=== PATIENT | female | born 1990 | race Caucasian/White ===

== ENCOUNTER → 2020-06-24 | Outpatient (CLI) | payer BC, OTHER ==
[~2020-06-24] MED LIST: CARAFATE 1 GM TA1 GM PO; CIPRO500 MG PO; COLACE 100MG C100 MG PO; ETHINYL ESTRADIOL PO; LEVONORGESTREL PO; MEDROL DOSEPAK 24 MG PO; NORCO 7.5-3251 EACH PO; PROTONIX40 MG PO; SPIRONOLACTONE50 MG PO; SYNTHROID150 MCG PO; VYVANSE60 MG PO
== END ==
LOC: RAD 12:13
DX: R06.02 Shortness of breath (principal)
CPT/HCPCS: 71046

== ENCOUNTER → 2020-07-12 | Outpatient (CLI) | payer BC, OTHER ==
[2020-07-13 08:14] LABS: VITAMIN D, 25-HYDROXY 38.5 ng/mL (30.0-100.0)
[2020-07-13 10:14] LABS: HBSAG SCREEN Negative (Negative); HEP B CORE AB, TOT Negative (Negative)
[2020-07-13 11:15] LABS: HCV AB <0.1 (0.0-0.9)
[2020-07-13 12:14] LABS: COMPLEMENT C3, SERUM 177 mg/dL (82-167); COMPLEMENT C4, SERUM 44 mg/dL (12-38)
[2020-07-15 00:09] LABS: CCP ANTIBODIES IGG/IGA 7 units (0-19)
[2020-07-15 20:11] LABS: QUANTIFERON MITOGEN VALUE >10.00 IU/mL (.); QUANTIFERON-TB GOLD PLUS Negative (Negative)
== END ==
LOC: LAB 12:30
PROVIDERS: Nurse Practitioner Family
DX: Z13.828 Encounter for screening for other musculoskeletal disorder (principal); D89.9 Disorder involving the immune mechanism, unspecified; M25.50 Pain in unspecified joint; R76.8 Other specified abnormal immunological findings in serum; Z87.898 Personal history of other specified conditions
CPT/HCPCS: 36415; 81001; 82550; 82570; 82728; 83520; 84156; 86140; 86160; 86162; 86200; 86704; 86803; 87340

== ENCOUNTER → 2021-01-06 | Outpatient (CLI) | payer BC | LOC: ECHO 12:52 → HEART 5 01-18 15:00 | DX: R94.31 Abnormal electrocardiogram [ECG] [EKG] (principal); R00.2 Palpitations; I07.1 Rheumatic tricuspid insufficiency | CPT/HCPCS: ECHO; 93306 ==

== ENCOUNTER → 2021-01-12 | Outpatient (CLI) | payer BC | LOC: HEART 5 14:00 | DX: R00.2 Palpitations (principal); R94.31 Abnormal electrocardiogram [ECG] [EKG] ==

== ENCOUNTER → 2021-04-10 | Outpatient (CLI) | payer BC | LOC: RAD 14:13 | DX: Z20.828 Contact with and (suspected) exposure to other viral communicable diseases (principal); J45.901 Unspecified asthma with (acute) exacerbation; R05.1 Acute cough | CPT/HCPCS: 71046 ==

== ENCOUNTER → 2021-11-01 | Outpatient (CLI) | payer BC | LOC: RAD 17:52 | DX: M54.2 Cervicalgia (principal) | CPT/HCPCS: 72040 ==